=== PATIENT | female | born 1950 | race Caucasian/White ===

== ENCOUNTER 2016-06-27 09:58 | Inpatient (IN) | payer OTHER ==
[~2016-06-27] VITALS: Ht 172.7 cm; Wt 98.5 kg
[~2016-06-27 09:58] MED LIST: CIPRO500 MG PO; CYCLOBENZAPRINE10 MG PO; FLAGYL500 MG PO; KEFLEX500 MG PO; LEVOFLOXACIN500 MG PO; LIDEX0.05% T; Motrin,Rufen800 MG PO; NEIGHBOR P PO; PHENERGAN W/DM120 ML PO; PREDNICOT10 MG PO; PREDNISONE10 MG PO; PROAIR HFA0.09 MG/AC INH; PROVENTIL0.09 MG/A1 INH; [UNRECOGNIZED DRUG - CODE] SC
[2016-06-27 10:35] LABS: BASO % 0.7 % (0.0-1.0); EOS # 0.1 10*3/uL (0.0-0.4); EOS % 1.7 % (1.0-4.0); HEMATOCRIT 35.8 % (37.0-47.0); HEMOGLOBIN 12.2 g/dl (12.0-16.0); LYMPH # 0.9 10*3/uL (1.3-4.4); LYMPH % 15.7 % (27.0-41.0); MEAN CELL VOLUME 93.7 fl (81.0-99.0); MEAN CORPUSCULAR HGB 31.9 pg (27.0-31.0); MEAN CORPUSCULAR HGB CONC 34.1 g/dl (33.0-37.0); MEAN PLATELET VOLUME 10.3 fl (9.6-12.3); MONO # 0.4 10*3/uL (0.1-1.0); MONO % 5.9 % (3.0-9.0); NEUT # 4.5 10*3/uL (2.3-7.9); NEUT % 75.8 % (47.0-73.0); PLATELET COUNT AUTOMATED 197 10*3/uL (130-400); RED BLOOD COUNT 3.82 10*6/uL (4.10-5.10); RED CELL DISTRI WIDTH 12.8 % (0-14.5)
[2016-06-27 10:44] LABS: PROTHROMBIN TIME 10.1 SECONDS (9.0-12.4)
[2016-06-27 10:52] LABS: ALBUMIN 3.7 gm/dl (3.1-4.5); ALKALINE PHOSPHATASE 56 U/L (45-117); BILIRUBIN, TOTAL 0.4 mg/dl (0.2-1.0); BUN 16 mg/dl (7-24); CARBON DIOXIDE 25 mmol/L (21-32); CHLORIDE 107 mmol/L (98-107); CKMB 1.3 ng/ml (0.5-3.6); CPK 86 U/L (26-192); EST GLOM FILT AFRICAN AMERICAN > 60 ml/min; GLUCOSE 104 mg/dL (65-99); MAGNESIUM 2.1 mg/dL (1.5-2.1); POTASSIUM 4.2 mmol/L (3.5-5.1); SGOT/AST 19 IU/L (3-35); SGPT/ALT 27 U/L (12-78); SODIUM 142 mmol/L (136-145); TOTAL PROTEIN 7.3 gm/dL (6.4-8.2)
[2016-06-27 11:02] LABS: C-REACTIVE PROTEIN < 0.29 MG/DL (0-0.3); TROPONIN I < 0.015 ng/ml (<0.045)
[2016-06-27 18:08] LABS: CPK 77 U/L (26-192)
[2016-06-27 18:12] LABS: TROPONIN I < 0.015 ng/ml (<0.045)
[2016-06-28 00:58] LABS: CKMB 1.1 ng/ml (0.5-3.6); CPK 67 U/L (26-192)
[2016-06-28 01:02] LABS: TROPONIN I < 0.015 ng/ml (<0.045)
[2016-06-28 06:12] LABS: BASO % 0.5 % (0.0-1.0); EOS # 0.1 10*3/uL (0.0-0.4); HEMATOCRIT 32.8 % (37.0-47.0); HEMOGLOBIN 11.1 g/dl (12.0-16.0); LYMPH # 1.3 10*3/uL (1.3-4.4); LYMPH % 31.7 % (27.0-41.0); MEAN CELL VOLUME 95.9 fl (81.0-99.0); MEAN CORPUSCULAR HGB 32.5 pg (27.0-31.0); MEAN CORPUSCULAR HGB CONC 33.8 g/dl (33.0-37.0); MEAN PLATELET VOLUME 10.3 fl (9.6-12.3); MONO # 0.3 10*3/uL (0.1-1.0); MONO % 7.9 % (3.0-9.0); NEUT # 2.2 10*3/uL (2.3-7.9); NEUT % 56.9 % (47.0-73.0); PLATELET COUNT AUTOMATED 174 10*3/uL (130-400); RED BLOOD COUNT 3.42 10*6/uL (4.10-5.10); RED CELL DISTRI WIDTH 12.8 % (0-14.5); WHITE BLOOD COUNT 3.9 10*3/uL (4.8-10.8)
[2016-06-28 06:25] LABS: CKMB 0.8 ng/ml (0.5-3.6); CPK 70 U/L (26-192); TROPONIN I < 0.015 ng/ml (<0.045)
[2016-06-28 06:39] LABS: HEMOGLOBIN A1c 5.3 % (4.8-5.6)
[2016-06-28 06:43] LABS: ALKALINE PHOSPHATASE 46 U/L (45-117); BILIRUBIN, TOTAL 0.4 mg/dl (0.2-1.0); BUN 14 mg/dl (7-24); CARBON DIOXIDE 26 mmol/L (21-32); CHLORIDE 109 mmol/L (98-107); CHOLESTEROL 157 mg/dL (<200); EST GLOM FILT AFRICAN AMERICAN > 60 ml/min; FREE T4 0.92 ng/dl (0.76-1.46); GLUCOSE 89 mg/dL (65-99); HDL CHOLESTEROL 62 mg/dl (40-60); LDL CHOLESTEROL 73 mg/dL (9-159); MAGNESIUM 2.4 mg/dL (1.5-2.1); PHOSPHOROUS 3.6 mg/dL (2.5-4.9); POTASSIUM 3.7 mmol/L (3.5-5.1); SGOT/AST 16 IU/L (3-35); SGPT/ALT 25 U/L (12-78); SODIUM 145 mmol/L (136-145); TOTAL PROTEIN 6.2 gm/dL (6.4-8.2); TRIGLYCERIDES 109 mg/dl (<150); VLDL CHOLESTEROL 22 mg/dL (6-40)
[2016-06-28 06:45] LABS: PROTHROMBIN TIME 10.2 SECONDS (9.0-12.4)
[2016-06-28 07:02] LABS: FOLIC ACID 13.16 ng/mL (>5.38)
[2016-06-28] MEDS ORDERED: PREDNISONE10 MG PO (11:55)
[2016-06-28] MEDS ORDERED: AUGMENTIN 875-875 MG PO (11:55)
[2016-06-28] MEDS ORDERED: MECLIZINE HCL25 M2 PO (11:55)
== END 2016-06-28 13:19 | disposition home or self-care (01) | DRG 641 ==
LOC: ED 09:58 → EDHOLD 12:48 → 5E 12:48
PROVIDERS: Emergency Medicine; Internal Medicine
DX: E86.0 Dehydration (principal); E66.9 Obesity, unspecified; H66.93 Otitis media, unspecified, bilateral; H90.0 Conductive hearing loss, bilateral; R00.0 Tachycardia, unspecified; Z82.49 Family history of ischemic heart disease and other diseases of the circulatory system; Z68.33 Body mass index [BMI] 33.0-33.9, adult

== ENCOUNTER 2016-07-07 07:10 | Emergency (ER) | payer OTHER ==
[~2016-07-07] VITALS: Ht 172.7 cm; Wt 99.8 kg
[~2016-07-07 07:10] MED LIST changes: +AUGMENTIN 875-875 MG PO; +MECLIZINE HCL25 M2 PO
[2016-07-07 07:50] LABS: BASO % 0.2 % (0.0-1.0); EOS # 0.1 10*3/uL (0.0-0.4); EOS % 1.2 % (1.0-4.0); HEMATOCRIT 35.7 % (37.0-47.0); HEMOGLOBIN 12.1 g/dl (12.0-16.0); LYMPH # 2.8 10*3/uL (1.3-4.4); MEAN CELL VOLUME 94.4 fl (81.0-99.0); MEAN CORPUSCULAR HGB CONC 33.9 g/dl (33.0-37.0); MEAN PLATELET VOLUME 10.3 fl (9.6-12.3); MONO # 0.6 10*3/uL (0.1-1.0); MONO % 7.1 % (3.0-9.0); NEUT # 4.7 10*3/uL (2.3-7.9); NEUT % 57.3 % (47.0-73.0); PLATELET COUNT AUTOMATED 201 10*3/uL (130-400); RED BLOOD COUNT 3.78 10*6/uL (4.10-5.10); RED CELL DISTRI WIDTH 13.2 % (0-14.5); WHITE BLOOD COUNT 8.3 10*3/uL (4.8-10.8)
[2016-07-07 08:09] LABS: ALBUMIN 3.4 gm/dl (3.1-4.5); ALKALINE PHOSPHATASE 48 U/L (45-117); BILIRUBIN, TOTAL 0.4 mg/dl (0.2-1.0); BUN 16 mg/dl (7-24); CARBON DIOXIDE 28 mmol/L (21-32); CHLORIDE 106 mmol/L (98-107); EST GLOM FILT AFRICAN AMERICAN > 60 ml/min; GLUCOSE 84 mg/dL (65-99); MAGNESIUM 2.3 mg/dL (1.5-2.1); POTASSIUM 3.9 mmol/L (3.5-5.1); SGOT/AST 11 IU/L (3-35); SGPT/ALT 31 U/L (12-78); SODIUM 143 mmol/L (136-145); TOTAL PROTEIN 6.8 gm/dL (6.4-8.2)
[2016-07-07 08:17] LABS: TROPONIN I < 0.015 ng/ml (<0.045)
== END 2016-07-07 09:20 | disposition home or self-care (01) ==
LOC: ED 07:10
PROVIDERS: Emergency Medicine
DX: I15.9 Secondary hypertension, unspecified (principal); R00.2 Palpitations; E66.9 Obesity, unspecified; Z68.34 Body mass index [BMI] 34.0-34.9, adult; Z91.011 Allergy to milk products

== ENCOUNTER 2016-07-08 08:22 | Emergency (ER) | payer OTHER | END 2016-07-08 08:51 | disposition home or self-care (01) | LOC: ED 08:22 | DX: S00.411A Abrasion of right ear, initial encounter (principal); E66.9 Obesity, unspecified; I10 Essential (primary) hypertension; Z91.011 Allergy to milk products; Z68.34 Body mass index [BMI] 34.0-34.9, adult; X58.XXXA Exposure to other specified factors, initial encounter; Y93.89 Activity, other specified; Y92.89 Other specified places as the place of occurrence of the external cause; Y99.9 Unspecified external cause status ==

== ENCOUNTER 2016-10-12 14:52 | Inpatient (IN) | payer OTHER ==
[2016-10-12] VITALS (7 sets, daily range): BP systolic 110–131; BP diastolic 57–97
[~2016-10-12] VITALS: Ht 172.7 cm; Wt 100.3 kg
[2016-10-12 15:23] LABS: BASO % 0.4 % (0.0-1.0); EOS # 0.1 10*3/uL (0.0-0.4); EOS % 1.7 % (1.0-4.0); HEMATOCRIT 36.6 % (37.0-47.0); HEMOGLOBIN 12.2 g/dl (12.0-16.0); LYMPH # 1.6 10*3/uL (1.3-4.4); LYMPH % 22.2 % (27.0-41.0); MEAN CELL VOLUME 96.1 fl (81.0-99.0); MEAN CORPUSCULAR HGB CONC 33.3 g/dl (33.0-37.0); MONO # 0.5 10*3/uL (0.1-1.0); MONO % 7.6 % (3.0-9.0); NEUT # 4.7 10*3/uL (2.3-7.9); NEUT % 67.7 % (47.0-73.0); PLATELET COUNT AUTOMATED 230 10*3/uL (130-400); RED BLOOD COUNT 3.81 10*6/uL (4.10-5.10); RED CELL DISTRI WIDTH 12.4 % (0-14.5)
[2016-10-12 15:31] LABS: PROTHROMBIN TIME 10.3 SECONDS (9.0-12.4)
[2016-10-12] MEDS ORDERED: Elocon 0.1% Cre15 GM T (15:34)
[2016-10-12 15:39] LABS: ALBUMIN 3.6 gm/dl (3.1-4.5); ALKALINE PHOSPHATASE 58 U/L (45-117); BILIRUBIN, TOTAL 0.4 mg/dl (0.2-1.0); BUN 10 mg/dl (7-24); C-REACTIVE PROTEIN 0.58 MG/DL (0-0.3); CARBON DIOXIDE 27 mmol/L (21-32); CHLORIDE 107 mmol/L (98-107); CPK 97 U/L (26-192); EST GLOM FILT AFRICAN AMERICAN > 60 ml/min; GLUCOSE 97 mg/dL (65-99); MAGNESIUM 2.1 mg/dL (1.5-2.1); POTASSIUM 4.7 mmol/L (3.5-5.1); SGOT/AST 23 IU/L (3-35); SGPT/ALT 35 U/L (12-78); SODIUM 143 mmol/L (136-145)
[2016-10-12 15:40] LABS: TROPONIN I < 0.015 ng/ml (<0.045)
[2016-10-13] VITALS (7 sets, daily range): BP systolic 88–128; BP diastolic 50–77
[2016-10-13 06:20] LABS: BASO % 0.3 % (0.0-1.0); EOS # 0.2 10*3/uL (0.0-0.4); HEMATOCRIT 33.5 % (37.0-47.0); HEMOGLOBIN 11.3 g/dl (12.0-16.0); LYMPH # 1.5 10*3/uL (1.3-4.4); LYMPH % 25.3 % (27.0-41.0); MEAN CELL VOLUME 96.8 fl (81.0-99.0); MEAN CORPUSCULAR HGB 32.7 pg (27.0-31.0); MEAN CORPUSCULAR HGB CONC 33.7 g/dl (33.0-37.0); MEAN PLATELET VOLUME 11.4 fl (9.6-12.3); MONO # 0.4 10*3/uL (0.1-1.0); MONO % 7.1 % (3.0-9.0); NEUT # 3.7 10*3/uL (2.3-7.9); PLATELET COUNT AUTOMATED 188 10*3/uL (130-400); RED BLOOD COUNT 3.46 10*6/uL (4.10-5.10); RED CELL DISTRI WIDTH 12.5 % (0-14.5); WHITE BLOOD COUNT 5.8 10*3/uL (4.8-10.8)
[2016-10-13 06:45] LABS: BUN 13 mg/dl (7-24); CARBON DIOXIDE 27 mmol/L (21-32); CHLORIDE 106 mmol/L (98-107); EST GLOM FILT AFRICAN AMERICAN > 60 ml/min; GLUCOSE 95 mg/dL (65-99); SODIUM 143 mmol/L (136-145)
[2016-10-13 06:56] LABS: FREE T4 1.17 ng/dl (0.76-1.46)
[2016-10-13] MEDS ORDERED: DRAMAMINE PO (09:07)
[2016-10-13] MEDS ORDERED: ELOCON0.1% T (09:08)
[2016-10-13 13:55] LABS: BILIRUBIN NEGATIVE (NEGATIVE); BLOOD NEGATIVE (NEGATIVE); CLARITY SL CLOUDY (CLEAR); COLOR YELLOW (YELLOW); GLUCOSE NEGATIVE (NEGATIVE); KETONE NEGATIVE (NEGATIVE); LEUKO ESTERASE 2+ (NEGATIVE); NITRITE NEGATIVE (NEGATIVE); PROTEIN NEGATIVE (NEGATIVE); SPECIFIC GRAVITY <= 1.005 (1.005-1.030); UROBILINOGEN 0.2 E.U./dl (0.2-1.0)
[2016-10-13] MEDS ORDERED: ELIQUIS5 M1 PO (14:00)
[2016-10-13] MEDS ORDERED: TOPROL XL50 M1 PO (14:00)
[2016-10-13 14:03] LABS: MUCOUS TRACE; URINE REFLEX COMMENT YES (NO)
== END 2016-10-13 15:38 | disposition home or self-care (01) | DRG 310 ==
LOC: ED 14:52 → EDHOLD 16:18 → 5E 16:18
PROVIDERS: Internal Medicine; Nurse Practitioner Family
DX: I48.91 Unspecified atrial fibrillation (principal); E66.9 Obesity, unspecified; H90.2 Conductive hearing loss, unspecified; Q37.9 Unspecified cleft palate with unilateral cleft lip; Z68.33 Body mass index [BMI] 33.0-33.9, adult; Z82.49 Family history of ischemic heart disease and other diseases of the circulatory system; Z88.8 Allergy status to other drugs, medicaments and biological substances; Z79.899 Other long term (current) drug therapy

== ENCOUNTER → 2016-10-20 | Day surgery (SDC) | payer OTHER ==
[~2016-10-20] VITALS: Ht 172.7 cm; Wt 100.7 kg
[~2016-10-20] MED LIST changes: +DRAMAMINE PO; +ELIQUIS5 M1 PO; +ELOCON0.1% T; +Elocon 0.1% Cre15 GM T; +TOPROL XL50 M1 PO
[2016-10-20 10:57] VITALS: BP 127/71
[2016-10-20 13:15] VITALS: BP 120/71
[2016-10-20 13:30] VITALS: BP 131/85
[2016-10-20 13:45] VITALS: BP 142/77
[2016-10-20 14:00] VITALS: BP 130/74
== END | disposition home or self-care (01) ==
LOC: SDC 10-19 15:30
DX: I48.91 Unspecified atrial fibrillation (principal); L40.9 Psoriasis, unspecified; Z85.828 Personal history of other malignant neoplasm of skin; Z80.9 Family history of malignant neoplasm, unspecified; Z82.49 Family history of ischemic heart disease and other diseases of the circulatory system; Z98.890 Other specified postprocedural states; Z88.8 Allergy status to other drugs, medicaments and biological substances

== ENCOUNTER 2017-05-27 12:44 | Emergency (ER) | payer OTHER ==
[~2017-05-27] VITALS: Ht 172.7 cm; Wt 98.0 kg
== END 2017-05-27 14:30 | disposition home or self-care (01) ==
LOC: ED 12:44
DX: S83.92XA Sprain of unspecified site of left knee, initial encounter (principal); E66.9 Obesity, unspecified; I48.91 Unspecified atrial fibrillation; Z68.34 Body mass index [BMI] 34.0-34.9, adult; Z98.890 Other specified postprocedural states; Z91.011 Allergy to milk products; Z79.899 Other long term (current) drug therapy; X50.1XXA Overexertion from prolonged static or awkward postures, initial encounter; Y93.89 Activity, other specified; Y92.89 Other specified places as the place of occurrence of the external cause; Y99.9 Unspecified external cause status

== ENCOUNTER 2020-04-03 14:39 | Emergency (ER) | payer OTHER ==
[~2020-04-03] VITALS: Ht 172.7 cm; Wt 100.7 kg
[2020-04-03] MEDS ORDERED: CEPHALEXIN500 M1 PO (16:03)
== END 2020-04-03 16:48 | disposition home or self-care (01) ==
LOC: ED 14:39
DX: S61.212A Laceration without foreign body of right middle finger without damage to nail, initial encounter (principal); W45.8XXA Other foreign body or object entering through skin, initial encounter; Y93.89 Activity, other specified; Y92.89 Other specified places as the place of occurrence of the external cause; Y99.8 Other external cause status

== ENCOUNTER 2022-02-18 09:46 | Emergency (ER) | payer OTHER ==
[~2022-02-18] VITALS: Ht 172.7 cm; Wt 100.7 kg
[~2022-02-18 09:46] MED LIST changes: +CEPHALEXIN500 M1 PO
== END 2022-02-18 11:35 | disposition home or self-care (01) ==
LOC: ED 09:46
DX: S40.862A Insect bite (nonvenomous) of left upper arm, initial encounter (principal); Z91.011 Allergy to milk products; W57.XXXA Bitten or stung by nonvenomous insect and other nonvenomous arthropods, initial encounter; Y93.89 Activity, other specified; Y92.89 Other specified places as the place of occurrence of the external cause; Y99.8 Other external cause status